=== PATIENT | female | born 1945 | race Caucasian/White ===

== ENCOUNTER 2021-04-06 07:49 | Observation (INO) ==
--- NOTE | 2021-03-03 09:43 | PAT Medication Instructions ---
Medication Instructions Date of Service March 03, 2021 Home Medications Immune Defense Vitamin 2 cap PO QAM meloxicam 15 mg PO QAM ropinirole 1 mg PO TID PRN ropinirole 4 mg PO HS ASK your surgeon for instructions meloxicam 15 mg PO QAM STOP taking 2 weeks before surgery (or as soon as possible if surgery is within 2 weeks) Immune Defense Vitamin 2 cap PO QAM DO NOT take the morning of surgery ropinirole 1 mg PO TID PRN Take evening before surgery ropinirole 1 mg PO TID PRN (if needed) ropinirole 4 mg PO HS Other Notes If you have any questions please call us at [phone] or [phone] or [phone] or [phone]
--- NOTE | 2021-03-06 14:50 | Anesthesiology Consultation ---
Date of Service March 06, 2021 Assessment & Plan (1) Encounter for pre-operative examination: COVID screening: Per assessment on 03/06: Travel screen negative, no known COVID- 19 positive contacts or current COVID-19 related symptoms. Patient states that she does occasional go to small, local shops without a mask but does practice social distancing. Education provided regarding need for compliance of mask wearing in public from now until surgery. Surgeon arranging preop COVID testing. Awaiting results. Chart Review Chart Review: Acceptable Risk for Surgery and Patient seen in Pre Admission Testing Teaching & Discussion Pre-Anesthesia Teaching/Discussion Notes: Instructed NPO after midnight before surgery,except medications with 15 cc of water. Medication instructions pro vided according to the PAT guidelines. History Surgery Operation Date: 04/06/21 07:00 Proposed Procedures p Right Total Knee Arthroplasty - Roman Norman MD Height/Weight Height: 5 ft 2 in Weight: 87.4 kg Allergies Allergy/AdvReac Type Severity Reaction Status Date / Time Sulfa (Sulfonamide Allergy Intermediate Hives Unverified 03/03/21 16:23 Antibiotics) naproxen AdvReac Mild Diarrhea Unverified 03/03/21 16:23 Medications Home Medications Medication Instructions Recorded Confirmed Last Taken Immune Defense Vitamin 2 cap PO QAM 03/02/21 03/02/21 Unknown meloxicam 15 mg PO QAM 03/02/21 03/02/21 Unknown ropinirole 1 mg PO TID PRN 03/02/21 03/02/21 Unknown ropinirole 4 mg PO HS 03/02/21 03/02/21 Unknown Past Medical History Medical History Degenerative disc disease Obesity Osteoarthritis Restless leg syndrome Exercise / Class Metabolic Activity II 4-5 Yardwork/Stairs/Walk up hill (one flight of stairs (no chest pain, no SOB)) Past Family History Family History Mother Family history of diabetes mellitus Sister Family history of diabetes mellitus Grandmother (Maternal) Family history of diabetes mellitus Other No family history of adverse response to anesthesia Past Surgical History Surgical History H/O ovarian cystectomy History of colonoscopy History of lumbar surgery no hardware History of open reduction and internal fixation (ORIF) procedure Right ankle (hardware subsequently removed) History of repair of rotator cuff Right History of tooth extraction History of total left knee replacement Past Anesthesia History No Hx of Anesthesia Complications and No Family Hx of Anesthesia Complications History of PONV No Hx of PONV and No Hx of Motion Sickness Social History Smoking Status: Never smoker Do You Dip or Chew Tobacco: No Hx Alcohol Use: No substance use type: does not use Review of Systems Patient denies chest pain, shortness of breath, dyspnea on exertion, fever, chills, cough, wheezing, palpitations. Physical Exam Vital Signs VITALS BP 143/82 P 83 TEMP 98.0 SP02 98%RA RESP 18 PHYSICAL Full cervical extension range of motion. Full TMJ range of motion. TMD 3.5 finger breaths Mallampati Score 1 Dentition: + crowns (some have fallen off), missing sides Lungs: clear throughout to auscultation Cardiac: regular rate and rhythm, no murmurs noted Spine: normal Carotid arteries: negative bruit Extremities: no edema Testing Laboratory Results 03/06/21 15:03/06/21: PT 9.7 Seconds (9.0-12.0) 03/06/21: INR 1.0 (0.9-1.1) 03/06/21: APTT 28.8 Seconds (21.0-31.0) 03/06/21 15: Hemoglobin A1c 6.1 % (4.5-5.6) H 03/06/21: Urine Color Yellow 03/06/21: Urine Appearance Clear (Clear) 03/06/21: Urine pH 5.0 (4.5-7.5) 03/06/21 15: Ur Specific [place] 1.032 (1.000-1.030) H 03/06/21 15: Urine Protein Negative (Negative) 03/06/21: Urine Glucose (UA) Negative (Negative) 03/06/21: Urine Ketones Trace (Negative) H 03/06/21 15: Urine Nitrite Negative (Negative) 03/06/21 15: Ur Leukocyte Esterase Negative (Negative) 03/06/21: Blood Type O Negative 03/06/21: Antibody Screen NEGATIVE 03/06/21 15:29 Electrocardiogram Date: 03/06/21 Findings: + NSR @ (79) Chest X-Ray Date: 03/06/21 FINDINGS: Lung volumes are normal. There is no pneumothorax or pleural effusion. No evidence for pulmonary edema or pneumonia. There is mild cardiomegaly. Spine fusion hardware is partially imaged on lateral projection. IMPRESSION: No acute cardiopulmonary findings.
[2021-03-06 16:02] LABS: Basophils # (auto) 0.02 K/uL (0-0.2); Basophils % (auto) 0.5 %; Eosinophils # (auto) 0.05 K/uL (0-0.5); Eosinophils % (auto) 1.2 %; Hematocrit (blood only) 36.2 % (37-47); Hemoglobin 12.1 g/dL (12.0-16.0); Immature Granulocytes # (auto) 0.01 K/uL (0.00-0.02); Immature Granulocytes % (auto) 0.2 %; Lymphocytes # (auto) 1.67 K/uL (1.2-3.4); Lymphocytes % (auto) 38.8 %; Mean Corpuscular Hemoglobin 29.7 pg (25-34); Mean Corpuscular Hgb Conc 33.4 g/dL (32-36); Mean Corpuscular Volume 88.7 fL (80-100); Mean Platelet Volume 9.8 fL (7.4-10.4); Monocytes # (auto) 0.28 K/uL (0.11-0.59); Monocytes % (auto) 6.5 %; Neutrophils # (auto) 2.27 K/uL (1.4-6.5); Neutrophils % (auto) 52.8 %; Platelet Count 233 K/uL (130-400); RDW Coefficient of Variation 14.4 % (11.5-14.5); RDW Standard Deviation 47.3 fL (36.4-46.3); Red Blood Count 4.08 M/uL (4.2-5.4)
[2021-03-06 16:09] LABS: Albumin Level 3.7 gm/dl (3.4-5.0); BUN Creatinine Ratio 33.6 (10-20); Calcium 8.8 mg/dl (8.5-10.1); Creatinine Clr Calc Pharmacy 63.2 ml/min; Est GFR (African American) 84.9; Est GFR (Non-African American) 73.2
--- NOTE | 2021-03-06 16:11 | XRay Report ---
XR chest Pre-admission PA/Lat CLINICAL HISTORY: Preoperative evaluation. COMPARISON STUDY: Chest radiograph March 09, 2013. FINDINGS: Lung volumes are normal. There is no pneumothorax or pleural effusion. No evidence for pulm onary edema or pneumonia. There is mild cardiomegaly. Spine fusion hardware is partially imaged on la teral projection. IMPRESSION: No acute cardiopulmonary findings. ACT 112: Negative or not required by law. Electronically signed by: Taj Johnson M.D. 03/06/2021 4:09 PM
[2021-03-06 16:14] LABS: Partial Thromboplastin Ratio 1.1; Partial Thromboplastin Time 28.8 Seconds (21.0-31.0); Prothrombin Time 9.7 Seconds (9.0-12.0)
[2021-03-06 16:23] LABS: Appearance Urine Clear (Clear); Bilirubin Urine Negative (Negative); Blood Urine Negative (Negative); Color Urine Yellow; Glucose Urine UA Negative (Negative); Ketones Urine Trace (Negative); Leukocyte Esterase Urine Negative (Negative); Nitrite Urine Negative (Negative); Protein Urine Negative (Negative); Specific Gravity Urine 1.032 (1.000-1.030); Urobilinogen Urine Negative (Negative)
[2021-03-07 05:20] LABS: Estimated Average Glucose 128 mg/dl; Hemoglobin A1C 6.1 % (4.5-5.6)
--- NOTE | 2021-03-07 06:16 | Electrocardiogram Report ---
Test Reason : Blood Pressure : / mmHG Vent. Rate : 079 BPM Atrial Rate : 079 BPM P-R Int : 138 ms QRS Dur : 088 ms QT Int : 394 ms P-R-T Axes : 061 086 050 degrees QTc Int : 451 ms Normal sinus rhythm Normal ECG When compared with ECG of 05-MAR-2013 10:20, No significant change was found Confirmed by Alex Cardozo ([id number]) on 03/07/2021 6:16:11 AM Referred By: Roman Norman Confirmed By:Alex Cardozo
--- NOTE | 2021-04-04 20:11 | History & Physical Report ---
Date of Service April 04, 2021 Assessment & Plan (1) Primary osteoarthritis of right knee: Treatment options discussed with patient. She has failed conservative measures as above. She would like to proceed with surgical management. Risks, benefits and alternatives to surgery including but not limited to infection, DVT, pain, stiffness, need for revision surgery, damage to blood vessels, damage to nerves, PE, , were discussed with the patient and they wish to proceed. Plan for right total knee arthroplasty at [facility] on 04/06/[address] Norman. Will plan on HHPT post discharge. DVT prophylaxis will be ASA 81mg BID x 1 mo post op. All questions answered. F/u post operatively. History of Present Illness Chief Complaint: Right knee pain Primary Care Provider: Keyon Mena 76 year old female with no significant PMHx presents with longstanding right knee pain. Has previous left knee replacement and has done well. Pain interferi ng with her daily activities. She has failed conservative measures including cortisone injections, viscoelastic injections, NSAIDs. Tylenol, and bracing. She would like to proceed with knee replacement. Patient denies headaches, sweats, fevers, chills, double vision, blurred vision, cough, sore throat, dysphagia, chest pain, sob, wheezing, n/v/d/c, numbness, tingling, fatigue, urinary symptoms, mood disorders. ROS positive for right knee pain and stiffness. Allergies Allergy/AdvReac Type Severity Reaction Status Date / Time Sulfa (Sulfonamide Allergy Intermediate Hives Unverified 03/03/21 16:23 Antibiotics) naproxen AdvReac Mild Diarrhea Unverified 03/03/21 16:23 Home Medications Medication Instructions Recorded Confirmed Type Immune Defense Vitamin 2 cap PO QAM 03/02/21 03/02/21 History meloxicam 15 mg PO QAM 03/02/21 03/02/21 History ropinirole 1 mg PO TID PRN 03/02/21 03/02/21 History ropinirole 4 mg PO HS 03/02/21 03/02/21 History Past Med/Surg History Medical History Degenerative disc disease Obesity Osteoarthritis Restless leg syndrome Surgical History H/O ovarian cystectomy History of colonoscopy History of lumbar surgery no hardware History of open reduction and internal fixation (ORIF) procedure Right ankle (hardware subsequently removed) History of repair of rotator cuff Right History of tooth extraction History of total left knee replacement Family History Mother Family history of diabetes mellitus Sister Family history of diabetes mellitus Grandmother (Maternal) Family history of diabetes mellitus Other No family history of adverse response to anesthesia Social History Smoking Status: Never smoker Second Hand Exposure: Yes ( A CHILD); Do You Dip or Chew Tobacco: No; Hx Alcohol Use: No Preferred Language: Urdu Print Shop Helper Required: No Beliefs That Will Affect Care: None Current Living Situation: Spouse Feels Safe at Home: Yes Safety Concerns: Feels Safe At This Time Assistive Devices: Cane and Glasses Assistive Devices Comment: PARTIAL PLATE (DOES NOT WEAR) Review of Systems All systems reviewed & are unremarkable except as noted in HPI & below Physical Exam Constitutional: well developed and well nourished; no acute distress Eyes: PERRL, conjunctivae normal, anicteric sclerae ENMT: external ear and nose normal, oropharynx normal Neck: trachea midline, no thyromegaly Respiratory: normal respiratory effort, lungs clear to auscultation Cardiovascular: RRR, no murmur, no edema Musculoskeletal: Right Knee: Painful ROM with crepitation. ROM 5-110 degrees, crepitation noted. Stable to valgus and varus stress. Positive Doroteo's. Tenderness medial joint line, mild effusion. Skin: no rashes, warm and dry Neurologic: patellar DTR's 2+ bilat, sensation intact Psychiatric: A+Ox3, euthymic affect Results & Data ([facility]) Laboratory Results Lab Results 03/06/21 03/06/21 03/06/21 Range/Units 15:29 15:29 15:29 WBC 4.30 L (4.8-10.8) K/uL RBC 4.08 L (4.2-5.4) M/uL Hgb 12.1 (12.0-16.0) g/dL Hct 36.2 L (37-47) % MCV 88.7 (80-100) fL MCH 29.7 (25-34) pg MCHC 33.4 (32-36) g/dL RDW Std Deviation 47.3 H (36.4-46.3) fL RDW Coeff of [place] 14.4 (11.5-14.5) % Plt Count 233 (130-400) K/uL MPV 9.8 (7.4-10.4) fL Immature Gran % (Auto) 0.2 % Neut % (Auto) 52.8 % Lymph % (Auto) 38.8 % [place] % (Auto) 6.5 % Eos % (Auto) 1.2 % Baso % (Auto) 0.5 % Neut # (Auto) 2.27 (1.4-6.5) K/uL Lymph # (Auto) 1.67 (1.2-3.4) K/uL [place] # (Auto) 0.28 (0.11-0.59) K/uL Eos # (Auto) 0.05 (0-0.5) K/uL Baso # (Auto) 0.02 (0-0.2) K/uL Immature Gran # (Auto) 0.01 (0.00-0.02) K/uL PT 9.7 (9.0-12.0) Seconds INR 1.0 (0.9-1.1) APTT 28.8 (21.0-31.0) Seconds PTT Ratio 1.1 Sodium 142 (136-145) mmol/L Potassium 4.0 (3.5-5.1) mmol/L Chloride 110 H (98-107) mmol/L Carbon Dioxide 26 (21-32) mmol/L Anion Gap 6.0 (3-11) BUN 27 H (7-18) mg/dl Creatinine 0.79 (0.6-1.2) mg/dl Est Cr Clr Drug Dosing 63.2 ml/min Est GFR ( Amer) 84.9 Est GFR (Non-Af Amer) 73.2 BUN/Creatinine Ratio 33.6 H (10-20) Glucose 154 H (70-99) mg/dl Estimat Average Glucose mg/dl Hemoglobin A1c (4.5-5.6) % Calcium 8.8 (8.5-10.1) mg/dl Albumin 3.7 (3.4-5.0) gm/dl Urine Color Urine Appearance (Clear) Urine pH (4.5-7.5) Ur Specific [place] (1.000-1.030) Urine Protein (Negative) Urine Glucose (UA) (Negative) Urine Ketones (Negative) Urine Blood (Negative) Urine Nitrite (Negative) Urine Bilirubin (Negative) Urine Urobilinogen (Negative) Ur Leukocyte Esterase (Negative) Blood Type Antibody Screen 03/06/21 03/06/21 03/06/21 Range/Units 15:29 15:29 15:29 WBC (4.8-10.8) K/uL RBC (4.2-5.4) M/uL Hgb (12.0-16.0) g/dL Hct (37-47) % MCV (80-100) fL MCH (25-34) pg MCHC (32-36) g/dL RDW Std Deviation (36.4-46.3) fL RDW Coeff of Perry (11.5-14.5) % Plt Count (130-400) K/uL MPV (7.4-10.4) fL Immature Gran % (Auto) % Neut % (Auto) % Lymph % (Auto) % [place] % (Auto) % Eos % (Auto) % Baso % (Auto) % Neut # (Auto) (1.4-6.5) K/uL Lymph # (Auto) (1.2-3.4) K/uL [place] # (Auto) (0.11-0.59) K/uL Eos # (Auto) (0-0.5) K/uL Baso # (Auto) (0-0.2) K/uL Immature Gran # (Auto) (0.00-0.02) K/uL PT (9.0-12.0) Seconds INR (0.9-1.1) APTT (21.0-31.0) Seconds PTT Ratio Sodium (136-145) mmol/L Potassium (3.5-5.1) mmol/L Chloride (98-107) mmol/L Carbon Dioxide (21-32) mmol/L Anion Gap (3-11) BUN (7-18) mg/dl Creatinine (0.6-1.2) mg/dl Est Cr Clr Drug Dosing ml/min Est GFR ( Amer) Est GFR (Non-Af Amer) BUN/Creatinine Ratio (10-20) Glucose (70-99) mg/dl Estimat Average Glucose 128 mg/dl Hemoglobin A1c 6.1 H (4.5-5.6) % Calcium (8.5-10.1) mg/dl Albumin (3.4-5.0) gm/dl Urine Color Yellow Urine Appearance Clear (Clear) Urine pH 5.0 (4.5-7.5) Ur Specific [place] 1.032 H (1.000-1.030) Urine Protein Negative (Negative) Urine Glucose (UA) Negative (Negative) Urine Ketones Trace H (Negative) Urine Blood Negative (Negative) Urine Nitrite Negative (Negative) Urine Bilirubin Negative (Negative) Urine Urobilinogen Negative (Negative) Ur Leukocyte Esterase Negative (Negative) Blood Type O Negative Antibody Screen NEGATIVE Diagnostic Findings Right knee radiographs: Endstage arthritic change, bone on bone medial compartment with periarticular osteophyte formation and subchondral sclerosis.
[~2021-04-06 07:49] MED LIST: ACETAMINOPHEN 500 MG TAB PO SCH; BUPIVACAINE 0.5 % 5 MG/1 ML PF 10ML VIAL ONE; EPINEPHrine INJ 1 MG/ML AMP ONE; FAMOTIDINE 20 MG TAB PO SCH; GABAPENTIN 300 MG CAP PO SCH; LR 15ML/HR IV SCH; METOCLOPRAMIDE HCL 10 MG TABLET PO SCH; ROPIVACAINE 0.5% 5 MG/ML 30 ML VIAL ONE; ROPIVACAINE 0.5% HCL/PF 150 MG, BUPIVACAINE 0.75% MPF 20 ML, EPINEPHrine 30MG/30ML (OR ... INSTIL SCH; TRANEXAMIC ACID 1,000 MG **IV Intra-op IV SCH; TRANEXAMIC ACID 1,000 MG **IV Pre-op IV SCH; ceFAZolin 2000MG 2,000 MG/15 ML SYR IV SCH; dexAMETHasone 4 MG TAB PO SCH
--- NOTE | 2021-04-06 09:10 | History & Physical Bridge Note ---
Date of Service April 06, 2021 History & Physical Bridge Note I have examined the patient, reviewed the History & Physical and in the interval since the performance of the History & Physical I have noted the following changes of clinical significance: no changes noted
[2021-04-06] MEDS ORDERED: fentaNYL citrate 100 MCG/2 ML VIAL ONE (09:28)
[2021-04-06] MEDS ORDERED: MIDAZOLAM HCL 1 MG/ML 2ML VIAL ONE ×2 (09:29→10:23)
[2021-04-06] MEDS ORDERED: ORTHO JOINT ANESTHETIC ONE (10:00)
[2021-04-06] MEDS ORDERED: ATROPINE SULFATE 0.1 MG/ML 10ML SYR IV PRN (10:14)
[2021-04-06] MEDS ORDERED: ePHEDrine sulfate 50 MG/ML AMP IV PRN (10:14)
[2021-04-06] MEDS ORDERED: PROPOFOL IV EMULSION 10 MG/ML 20 ML VIAL IV ONE ×7 (10:25→12:08)
[2021-04-06] MEDS ORDERED: KETAMINE 50 MG/5 ML SYRINGE ONE (11:07)
--- NOTE | 2021-04-06 12:07 | Operative Report ---
Post Operative Report Pre & Post Diagnosis Operation Date: 04/06/21 09:50 Pre-Op Diagnosis: Unilateral Primary Osteoarthritis Right Knee Post-Op Diagnosis: Unilateral Primary Osteoarthritis Right Knee I identified the patient and participated in the time-out.: Yes Procedure Operation Date: 04/06/21 09:50 Actual Procedures p Right Total Knee Arthroplasty(Right) - Roman Norman MD Surgeon Roman Norman MD Casino Accountant Carl RAY Estimated Blood Loss 5 Findings Consistent with Post-Op Diagnosis Specimens Bone cuts Drains 2 Hemovac Anesthesia Type MAC Spinal Regional Complications none Disposition Accompanied Patient To Recovery: No Disposition: Recovery Room Indications 76-year-old female progressive osteoarthritis of right knee failed conservative management. Patient is [id number] medial compartment. She has varus knee with some tricompartmental osteoarthritic changes. She has a Squires [employer] Nephew left knee replacement. Description of Procedure The patient was taken to the operating room and anesthetized under spinal MAC regional. Patient was placed supine on the the operating table. A pneumatic tourniquet was placed about the right upper thigh. The knee exam demonstrated moderately obese leg more obesity in the upper thigh. Patient has no instability and a varus knee with good range of motion.. The involved leg was elevated exsanguinated with Esmarch bandage and the pneumatic tourniquet was raised to 350 millimeters mercury. A longitudinal incision was made across the anterior knee. Skin flaps were elevated. An incision was made into the medial retinaculum and extended up into the mid third of the quadriceps tendon and extended down to the tibial tubercle. Intra-articular findings demonstrated tricompartment osteoarthritis with [id number] medial compartment eburnated bone. Tricompartmental osteophytes.. The knee was exposed by excising cruciate ligaments and menisci. The infrapatellar fat pad was resected. The fat pad over the anterior femur at the upper aspect of the articular surface was resected for placement of the component in that area. A subperiosteal peel lateral release was performed around the patella The Squires [employer] Nephew journey 2.0 posterior stabilized total knee arthroplasty system was utilized for the procedure. The custom femoral cutting guide was pinned in position. The distal femoral cut was made. The size 3, 5 in 1 cutting block was placed. The anterior posterior and chamfer cuts were made. The knee was extended and a free hand cut technique was performed to the patella. The patella with was measured and the width was reproduced using a 32 symmetrical patella component. 3 drill holes are made for the patella component pegs. The tibia was then subluxed. The custom tibial cutting block was pinned in position and the proximal tibial cut was made with the oscillating saw. The size 3 tibial trial was externally rotated in line with the tibial tubercle and pinned in position. The punch for the stem was used. The femoral trial was inserted and centered the notch cutting devices were used and the collet was placed. Tibial trials were used for the insert. The size 12 trial gave balanced ligaments through full range of motion. Patella tracking was assessed with range of motion. The patella tracked santino tral. The trials were removed. The Orthomix anesthetic cocktail was injected per protocol. The cut bone surfaces and soft tissue were copiously irrigated with antibiotic solution with bacitracin. The final components were cemented with Simplex cement. The final components were Squires [employer] Nephew journey posterior stabilized right size 3 femoral component, right 3 tibial component, 12 posterior stabilized polyethylene insert for tibia and a 32 symmetrical patella. While the cement cured the Betadine soak was used per protocol. When the cement cured the knee was copiously irrigated with pulsatile lavage saline solution. 2 drains were brought out laterally connected to Hemovac. The quadriceps tendon and medial retinaculum were closed with interrupted [id number] #1 Vicryl sutures. The knee was taken through full range of motion and repair was secure. The subcutaneous tissues were closed with 2-0 Vicryl sutures. The skin was closed with keiko. A superficial wound VAC evangelina and Acticoat was applied. The tourniquet was let down and the patient had good capillary refill to the extremity. The patient tolerated the procedure well. My physician licensed nursing assistant Carl RAY assisted in the procedure including prepping draping leg positioning soft tissue retraction instrument management and assisted in the closure ,dressings application and will participate in postoperative care the patient. I attest to the content of the Intraoperative Record and any orders documented therein. Any exceptions are noted below.
--- NOTE | 2021-04-06 13:13 | Anesthesiology Progress Note ---
Date of Service April 06, 2021 Anesthesia Post Procedure Vital Signs Vital Signs: Temp Pulse Pulse Resp BP BP Pulse Ox 04/06/21 13:10 99 H 16 105/91 99 04/06/21 13:00 86 16 145/98 H 100 04/06/21 12:50 36.1 C L 92 H 16 160/83 H 99 04/06/21 08:35 36.7 C 87 18 173/98 H 97 Pain Intensity Right Knee: Pain Intensity: 5 Transfer of Care Handoff Completed per policy Notes Mental Status: alert / awake / arousable Patient Amnestic to Procedure: Yes Nausea / Vomiting: adequately controlled Pain: adequately controlled Airway Patency, RR, SpO2: stable & adequate BP & HR: stable & adequate Hydration State: stable & adequate Anesthetic Complications: no major complications apparent
--- NOTE | 2021-04-06 13:16 | XRay Report ---
TWO VIEWS RIGHT KNEE CLINICAL HISTORY: Postoperative examination. FINDINGS: AP and crosstable lateral portable views of the right knee are obtained. A right knee arthr oplasty is in near anatomic alignment. There has been undersurface remodeling of the patella. No acut e fracture is seen. There are expected postoperative changes around the knee including skin clips, a surgical drain, soft tissue edema, and subcutaneous gas. IMPRESSION: Expected postoperative changes status post right knee arthroplasty. No acute fracture is seen. ACT 112: Negative or not required by law. Electronically signed by: Steven James M.D. 04/06/2021 1:15 PM
--- NOTE | 2021-04-06 13:27 | Communication Note ---
Date of Service: April 06, 2021 Pt's SAB is receding ; sensorium and movement is starting to return.
[2021-04-06] MEDS ORDERED: rOPINIRole HCL 1 MG TABLET PO SCH ×2 (14:00→21:00)
[2021-04-06] MEDS ORDERED: METOCLOPRAMIDE HCL INJ 5 MG/ML 2 ML VIAL IV PRN (14:31)
[2021-04-06] MEDS ORDERED: bisacodyL 10 MG SUPP PR PRN (14:31)
[2021-04-06] MEDS ORDERED: MAGNESIUM HYDROXIDE SUSP 30 ML UDC PO PRN (14:31)
[2021-04-06] MEDS ORDERED: HYDROmorphone INJ 0.5 MG/0.5 ML SYR IV PRN (14:31)
[2021-04-06] MEDS ORDERED: ONDANSETRON INJ 2 MG/ML 2 ML VIAL IV PRN (14:31)
[2021-04-06] MEDS ORDERED: NALOXONE HCL 0.4 MG/1 ML VIAL/CARP IV PRN (14:31)
[2021-04-06] MEDS: SODIUM CHLORIDE 0.9% 1000ML 1,000 ML IV SCH (15:06)
[2021-04-06] MEDS: ACETAMINOPHEN 500 MG TAB PO SCH ×2 (15:41→21:14)
[2021-04-06] MEDS ORDERED: rOPINIRole HCL 1 MG TABLET PO PRN (16:08)
[2021-04-06] MEDS: ceFAZolin 2000MG 2,000 MG/15 ML SYR IV SCH (17:00)
[2021-04-06] MEDS ORDERED: SENNA 8.6 MG TAB PO SCH (21:00)
[2021-04-06] MEDS: DOCUSATE SODIUM 100 MG CAP PO SCH (21:09)
[2021-04-06] MEDS: ASPIRIN 81 MG ECTAB PO SCH (21:09)
[2021-04-06] MEDS: rOPINIRole HCL 1 MG TABLET PO PRN (21:10)
[2021-04-07] MEDS: ceFAZolin 2000MG 2,000 MG/15 ML SYR IV SCH (01:41)
[2021-04-07] MEDS: SODIUM CHLORIDE 0.9% 1000ML 1,000 ML IV SCH (01:41)
[2021-04-07] MEDS: ACETAMINOPHEN 500 MG TAB PO SCH (05:04)
[2021-04-07 06:17] LABS: Hematocrit (blood only) 31.4 % (37-47); Hemoglobin 10.1 g/dL (12.0-16.0); Mean Corpuscular Hemoglobin 29.2 pg (25-34); Mean Corpuscular Hgb Conc 32.2 g/dL (32-36); Mean Corpuscular Volume 90.8 fL (80-100); Mean Platelet Volume 9.9 fL (7.4-10.4); Platelet Count 206 K/uL (130-400); RDW Coefficient of Variation 14.1 % (11.5-14.5); RDW Standard Deviation 46.5 fL (36.4-46.3); Red Blood Count 3.46 M/uL (4.2-5.4); White Blood Count 8.53 K/uL (4.8-10.8)
[2021-04-07 06:35] LABS: BUN Creatinine Ratio 31.1 (10-20); Calcium 9.3 mg/dl (8.5-10.1); Creatinine Clr Calc Pharmacy 68.4 ml/min; Est GFR (African American) 94.9 ml/min; Est GFR (Non-African American) 81.9 ml/min; Potassium 3.9 mmol/L (3.5-5.1)
--- NOTE | 2021-04-07 07:28 | Orthopedic Progress Note ---
Date of Service April 07, 2021 Assessment & Plan (1) Primary osteoarthritis of right knee: POD#1 Right TKA -PT/OT -Pain management -DVT prophylaxis-SCDs, TEDs, ASA 81mg BID -AM labs-hemoglobin drop to 10.1 from 12.1 preop -D/C planning-home with HHPT, plan on discharge today if PT goes well. Admission and Anticipated Discharge Date Admission Date: April 06, 2021 Subjective Patient doing well this morning. No complaints. Knee pain is well controlled. Denies chest pain, sob, dizziness, headache, n/v/d. Hoping to go home today. Review of Systems Review of Systems: All systems reviewed & are unremarkable except as noted in HPI & below Physical Exam Physical Exam: Dressing is c/d/i. No calf tenderness. Toes mobile. Good dorsiflexion. Distally n/v status and sensation intact. Constitutional: well developed and well nourished; no acute distress Results & Data ([facility]) Vital Signs (Past 12 Hours) Vital Signs Temp Pulse Resp BP Pulse Ox 04/07/21 07:19 37.2 C 63 17 137/72 98 04/07/21 03:55 36.8 C 82 16 124/65 97 04/06/21 22:20 37.0 C 73 16 130/65 94
[2021-04-07] MEDS: DOCUSATE SODIUM 100 MG CAP PO SCH (07:48)
[2021-04-07] MEDS: ASPIRIN 81 MG ECTAB PO SCH (07:48)
[2021-04-07] MEDS: oxyCODONE HCL IR 5 MG TAB (IMMEDIATE RELEASE) PO PRN ×2 (07:48→11:40)
--- NOTE | 2021-04-07 08:58 | Hospitalist Consultation ---
Date of Consultation April 07, 2021 Assessment & Plan (1) Primary osteoarthritis of right knee: Mrs. Umanzor is a 76-year-old female with a history of Obesity, Restless Leg Syndrome, Degenerative Disc Disease, and Osteoarthritis who is now POD#1 from a Right TKA. Patient is being seen in room 311 and is sitting in a bedside chair. Patient has been up and walking around in her room, and she also washed up and dressed herself today. Patient states that her knee pain is very well controlled. She has not had any difficulty with ambulation. Patient considers herself to be very healthy overall and with the exception of the above-mentioned conditions, she does not have any serious chronic medical conditions. She is doing very well postoperatively and offers no complaints. Her knee surgical pain is well controlled, and she is ambulating without difficulty. She has developed a postoperative anemia with a hemoglobin of 10.1 g/dl today, but she is asymptomatic with this. Patient is medically stable at this time. Her vital signs are stable, and she is feeling well. We discussed the fact that she has developed a postoperative anemia. She was reassured that in coming weeks her blood count will build back up. Recommend the followin. Monitor daily H&H, BMP. 2. Ongoing DVT prophylaxis as per orthopedic surgeon. 3. Physical therapy as ordered. 4. Gradually increase ambulation as tolerated. 5. Continue pain management regimen as her postoperative pain is well control led. (2) Postoperative anemia: -- Hgb is 10.1 g/dl today. -- Patient is asymptomatic with this. -- Monitor daily H&H. (3) Restless leg syndrome: -- Well controlled. -- Continue Ropinirole 1 mg t.i.d. and 4 mg qHS. (4) Obesity: -- Hopefully with knee being replaced, patient will be able to be more physically active. -- Patient was encouraged to gradually increase aerobic activities as tolerated. History of Present Illness Reason for Consultation: -- Post-op Medical Management. -- POD#1 Right TKA. Requesting Physician: Roman Norman MD Attending Physician: Joshua Mcnamara DO History of Present Illness Mrs. Umanzor is a 76-year-old female with a history of Obesity, Restless Leg Syndrome, Degenerative Disc Disease, and Osteoarthritis who is now POD#1 from a Right TKA. Patient is being seen in room 311 and is sitting in a bedside ch air. Patient has been up and walking around in her room, and she also washed up and dressed herself today. Patient states that her knee pain is very well controlled. She has not had any difficulty with ambulation. Patient considers herself to be very healthy overall and with the exception of the above-mentioned conditions, she does not have any serious chronic medical conditions. Patient is as active as her knee allows. Leading up to surgery, she was able to do her activities daily living, carry laundry, carry groceries, walk, etc without limiting cardiopulmonary symptoms. She specifically denies any exertional chest pain, heaviness, tightness, pressure, or discomfort. She denies any exertional neck, jaw, back, or arm pain. She denies any shortness of breath, unusual dyspnea on exertion, orthopnea, or PND. No history of palpitations, syncope, or near syncope. Her body weight and appetite have been stable. She denies any nausea, vomiting, melena, or hematochezia. She has developed a postoperative anemia with a hemoglobin of 10.1 g/dl today, but she is asymptomatic with this. She will have physical therapy later this morning. Allergies Allergy/AdvReac Type Severity Reaction Status Date / Time Sulfa (Sulfonamide Allergy Intermediate Hives Verified 04/06/21 08:32 Antibiotics) naproxen AdvReac Mild Diarrhea Verified 04/06/21 08:32 Home Medications Medication Instructions Recorded Confirmed Type Immune Defense Vitamin 2 cap PO QAM 03/02/21 04/06/21 History meloxicam 15 mg PO QAM 03/02/21 04/06/21 History ropinirole 1 mg PO TID PRN 03/02/21 04/06/21 History ropinirole 4 mg PO HS 03/02/21 04/06/21 History acetaminophen 1,000 mg PO Q8 #60 tab 04/07/21 Rx aspirin 81 mg PO BID #60 tab 04/07/21 Rx oxycodone 5 - 10 mg PO .Q4h-6h PRN #30 tab 04/07/21 Rx MDD 6 Patient History Medical History Degenerative disc disease Obesity Osteoarthritis Restless leg syndrome Surgical History H/O ovarian cystectomy History of colonoscopy History of lumbar surgery no hardware History of open reduction and internal fixation (ORIF) procedure Right ankle (hardware subsequently removed) History of repair of rotator cuff Right History of tooth extraction History of total left knee replacement Family History Mother Family history of diabetes mellitus Sister Family history of diabetes mellitus Grandmother (Maternal) Family history of diabetes mellitus Other No family history of adverse response to anesthesia Social History Smoking Status: Never smoker Second Hand Exposure: Yes ( A CHILD); Do You Dip or Chew Tobacco: No; Hx Alcohol Use: No Preferred Language: Lithuanian 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 HEENT: Head is atraumatic, normocephalic. EOM's intact. Facies symmetric. No perioral cyanosis. NECK: No JVD. JVP is not elevated. Carotid upstrokes are + 2 bilaterally. No bruits are noted. CHEST/LUNGS: Clear to auscultation throughout all lung jules. No wheezes, rales, or crackles. CVS: S1 and S2 are regular without obvious murmurs, gallops, or rubs. PMI is nonpalpable. No lifts, heaves, or thrills. No abdominal aortic or renal bruits. ABDOMINAL EXAM: Bowel sounds are present. No masses, organomegaly, or tenderness. EXTREMITIES: No clubbing or cyanosis. No edema. Intact posterior tibial and radial pulses bilaterally. Right knee is dressed. NEUROLOGIC EXAM: Patient is awake, alert, and oriented. Pleasant and cooperative. Answers questions appropriately. Speech is clear. Results & Data Results & Data ([facility]) Vital Signs (Past 12 Hours) Vital Signs Temp Pulse Resp BP Pulse Ox 04/07/21 07:19 37.2 C 63 17 137/72 98 04/07/21 03:55 36.8 C 82 16 124/65 97 04/06/21 22:20 37.0 C 73 16 130/65 94 Laboratory Results Laboratory Results - last 24 hr 04/07/21 04/07/21 05:40 05:40 WBC 8.53 RBC 3.46 L Hgb 10.1 L Hct 31.4 L MCV 90.8 MCH 29.2 MCHC 32.2 RDW Std Deviation 46.5 H RDW Coeff of [place] 14.1 Plt Count 206 MPV 9.9 Sodium 140 Potassium 3.9 Chloride 110 H Carbon Dioxide 26 Anion Gap 4.0 BUN 22 H Creatinine 0.72 Est Cr Clr Drug Dosing 68.4 Est GFR ( Amer) 94.9 Est GFR (Non-Af Amer) 81.9 BUN/Creatinine Ratio 31.1 H Glucose 100 H Calcium 9.3 Diagnostic Findings KNEE X-RAY 04/06/21: -- Expected postoperative changes status post right knee arthroplasty. -- No acute fracture is seen. Medications Administered Medications Immune Defense Vitamin 2 cap PO QAM 03/02/21 [History Confirmed 04/06/21] meloxicam 15 mg PO QAM 03/02/21 [History Confirmed 04/06/21] ropinirole 1 mg PO TID PRN 03/02/21 [History Confirmed 04/06/21] ropinirole 4 mg PO HS 03/02/21 [History Confirmed 04/06/21] acetaminophen 1,000 mg PO Q8 #60 tab 04/07/21 [Rx] aspirin 81 mg PO BID #60 tab 04/07/21 [Rx] oxycodone 5 - 10 mg PO .Q4h-6h PRN #30 tab MDD 6 04/07/21 [Rx] Home Medications Acetaminophen (Acetaminophen 500 Mg Tab) 1,000 mg PO Q8 [facility] Stop: 05/06/21 14:30 Last Admin: 04/07/21 05:04 Dose: 1,000 mg Documented by: Aspirin (Aspirin 81 Mg Ectab) 81 mg PO BID [facility] Stop: 05/06/21 20:59 Last Admin: 04/07/21 07:48 Dose: 81 mg Documented by: Bisacodyl (Bisacodyl 10 Mg Supp) 10 mg NC DAILY PRN PRN Reason: Constipation Stop: 05/06/21 14:30 Docusate Sodium (Docusate Sodium 100 Mg Cap) 100 mg PO BID [facility] Stop: 05/06/21 20:59 Last Admin: 04/07/21 07:48 Dose: 100 mg Documented by: Hydromorphone HCl (Hydromorphone Inj 0.5 Mg/0.5 Ml Syr) 0.5 mg IV Q4H PRN PRN Reason: Pain or Pre PT Stop: 04/20/21 14:30 Magnesium Hydroxide (Magnesium Hydroxide Susp 30 Ml Udc) 30 ml PO Q6H PRN PRN Reason: Constipation Stop: 05/06/21 14:30 Metoclopramide HCl (Metoclopramide Hcl Inj 5 Mg/Ml 2 Ml Vial) 10 mg IV Q6H PRN PRN Reason: Nausea And Vomiting Stop: 05/06/21 14:30 Multivitamins (Multivitamin Tab) 1 tab PO QAM [facility] Stop: 05/07/21 08:59 Last Admin: 04/07/21 07:48 Dose: 1 tab Documented by: Naloxone HCl (Naloxone Hcl 0.4 Mg/1 Ml Vial/Carp) 0.1 mg IV Q5M PRN PRN Reason: Oversedation/Resp Depression Stop: 05/06/21 14:30 Ondansetron HCl (Ondansetron Inj 2 Mg/Ml 2 Ml Vial) 4 mg IV Q6H PRN PRN Reason: Nausea And Vomiting Stop: 05/06/21 14:30 Oxycodone HCl (Oxycodone Hcl Ir 5 Mg Tab (Immediate Release)) 5 - 10 mg PO Q4H PRN PRN Reason: Pain or Pre PT Stop: 04/20/21 14:30 Last Admin: 04/07/21 07:48 Dose: 5 mg Documented by: Ropinirole HCl (Ropinirole Hcl 1 Mg Tablet) 1 mg PO TID PRN PRN Reason: RESTLESS LEG SYNDROME Stop: 05/06/21 14:30 Last Admin: 04/06/21 21:10 Dose: 1 mg Documented by: Ropinirole HCl (Ropinirole Hcl 1 Mg Tablet) 4 mg PO [facility] Stop: 05/06/21 20:59 Last Admin: 04/06/21 21:09 Dose: 4 mg Documented by: Sennosides (Senna 8.6 Mg Tab) 17.2 mg PO [facility] Stop: 05/06/21 20:59 Last Admin: 04/06/21 21:09 Dose: 17.2 mg Documented by: PG Care Time/CCT Total # of Minutes Spent Total Time Spent with Patient: Total time spent is greater than 50% in coordination of care (as documented) at patient's floor/unit and/or counseling patient:35 Coding Level of Care Code 59340 Inpt Consult Level 4 Diagnoses Primary osteoarthritis of right knee M17.11 Postoperative anemia D64.9 Restless leg syndrome G25.81 Obesity E66.9 Time Spent (min) 45
[2021-04-07] MEDS ORDERED: rOPINIRole HCL 1 MG TABLET PO SCH (09:00)
[2021-04-07] MEDS ORDERED: MULTIVITAMIN TAB PO SCH (09:00)
[2021-04-07] MEDS: rOPINIRole HCL 1 MG TABLET PO PRN (12:07)
--- NOTE | 2021-04-08 18:11 | Discharge Summary ---
Date of Service April 08, 2021 Admission HPI Per Admitting Provider 76 year old female with no significant PMHx presents with longstanding right knee pain. Has previous left knee replacement and has done well. Pain interfering with her daily activities. She has failed conservative measures including cortisone injections, viscoelastic injections, NSAIDs. Tylenol, and bracing. She would like to proceed with knee replacement. Patient denies headaches, sweats, fevers, chills, double vision, blurred vision, cough, sore throat, dysphagia, chest pain, sob, wheezing, n/v/d/c, numbness, tingling, fatigue, urinary symptoms, mood disorders. ROS positive for right knee pain and stiffness. Admission Exam Per Admitting Provider Constitutional: well developed and well nourished; no acute distress Eyes: PERRL, conjunctivae normal, anicteric sclerae ENMT: external ear and nose normal, oropharynx normal Neck: trachea midline, no thyromegaly Respiratory: normal respiratory effort, lungs clear to auscultation Cardiovascular: RRR, no murmur, no edema Musculoskeletal: Right Knee: Painful ROM with crepitation. ROM 5-110 degrees, crepitation noted. Stable to valgus and varus stress. Positive Doroteo's. Tenderness medial joint line, mild effusion. Skin: no rashes, warm and dry Neurologic: patellar DTR's 2+ bilat, sensation intact Psychiatric: A+Ox3, euthymic affect Principal Diagnosis Right knee osteoarthritis, restless leg syndrome Discharge Exam Constitutional well developed and well nourished; no acute distress Eyes PERRL, conjunctivae normal, anicteric sclerae ENMT external ear and nose normal, oropharynx normal Neck trachea midline, no thyromegaly Respiratory normal respiratory effort, lungs clear to auscultation Cardiovascular RRR, no murmur, no edema Skin no rashes, warm and dry Neurologic patellar DTR's 2+ bilat, sensation intact Psychiatric A+Ox3, euthymic affect Discharge Data Allergies Allergy/AdvReac Type Severity Reaction Status Date / Time Sulfa (Sulfonamide Allergy Intermediate Hives Verified 04/06/21 08:32 Antibiotics) naproxen AdvReac Mild Diarrhea Verified 04/06/21 08:32 Consultations 04/03/21 10:29 Consult Hospitalist Routine Procedures Performed Operation Date: 04/06/21 09:50 Actual Procedures p Right Total Knee Arthroplasty(Right) - Roman Norman MD Ordered Studies 04/06/21 05:00 US - OR guided needle placemen Routine Hospital Course (1) Primary osteoarthritis of right knee: Patient presented for same day admission following right total knee arthroplasty on 04/06/21. She tolerated procedure well. The Patient had an uneventful hospital course. Post-operatively, her activity was progressed and well tolerated. They participated in PT with ambulation distance of 400 feet. ROM of operative knee reached 90 degrees. Labs remained stable- lowest hemoglobin recorded: 10.[address] Joshua Mcnamara of medical service was consulted for medical management during admission. Pain controlled on oral medications. Please refer to daily progress notes and PT notes for complete details. After exam on 04/07/21, patient was felt to be stable for discharge home with home health PT. Patient will f/u in the office in about 2 weeks for further evaluation including x-rays and incision check, sooner if having any issues or concerns. POD#1 Right TKA -PT/OT -Pain management -DVT prophylaxis-SCDs, TEDs, ASA 81mg BID -AM labs-hemoglobin drop to 10.1 from 12.1 preop -D/C planning-home with HHPT, plan on discharge today if PT goes well. Lab Results 03/06/21 03/06/21 03/06/21 Range/Units 15:29 15:29 15:29 WBC 4.30 L (4.8-10.8) K/uL RBC 4.08 L (4.2-5.4) M/uL Hgb 12.1 (12.0-16.0) g/dL Hct 36.2 L (37-47) % MCV 88.7 (80-100) fL MCH 29.7 (25-34) pg MCHC 33.4 (32-36) g/dL RDW Std Deviation 47.3 H (36.4-46.3) fL RDW Coeff of [place] 14.4 (11.5-14.5) % Plt Count 233 (130-400) K/uL MPV 9.8 (7.4-10.4) fL Immature Gran % (Auto) 0.2 % Neut % (Auto) 52.8 % Lymph % (Auto) 38.8 % [place] % (Auto) 6.5 % Eos % (Auto) 1.2 % Baso % (Auto) 0.5 % Neut # (Auto) 2.27 (1.4-6.5) K/uL Lymph # (Auto) 1.67 (1.2-3.4) K/uL [place] # (Auto) 0.28 (0.11-0.59) K/uL Eos # (Auto) 0.05 (0-0.5) K/uL Baso # (Auto) 0.02 (0-0.2) K/uL Immature Gran # (Auto) 0.01 (0.00-0.02) K/uL PT 9.7 (9.0-12.0) Seconds INR 1.0 (0.9-1.1) APTT 28.8 (21.0-31.0) Seconds PTT Ratio 1.1 Sodium 142 (136-145) mmol/L Potassium 4.0 (3.5-5.1) mmol/L Chloride 110 H (98-107) mmol/L Carbon Dioxide 26 (21-32) mmol/L Anion Gap 6.0 (3-11) BUN 27 H (7-18) mg/dl Creatinine 0.79 (0.6-1.2) mg/dl Est Cr Clr Drug Dosing 63.2 ml/min Est GFR ( Amer) 84.9 Est GFR (Non-Af Amer) 73.2 BUN/Creatinine Ratio 33.6 H (10-20) Glucose 154 H (70-99) mg/dl Estimat Average Glucose mg/dl Hemoglobin A1c (4.5-5.6) % Calcium 8.8 (8.5-10.1) mg/dl Albumin 3.7 (3.4-5.0) gm/dl Urine Color Urine Appearance (Clear) Urine pH (4.5-7.5) Ur Specific [place] (1.000-1.030) Urine Protein (Negative) Urine Glucose (UA) (Negative) Urine Ketones (Negative) Urine Blood (Negative) Urine Nitrite (Negative) Urine Bilirubin (Negative) Urine Urobilinogen (Negative) Ur Leukocyte Esterase (Negative) COVID-19 Eval Order SARS-CoV-2, RNA, NAAT (NEGATIVE) Blood Type Antibody Screen 03/06/21 03/06/21 03/06/21 Range/Units 15:29 15:29 15:29 WBC (4.8-10.8) K/uL RBC (4.2-5.4) M/uL Hgb (12.0-16.0) g/dL Hct (37-47) % MCV (80-100) fL MCH (25-34) pg MCHC (32-36) g/dL RDW Std Deviation (36.4-46.3) fL RDW Coeff of Perry (11.5-14.5) % Plt Count (130-400) K/uL MPV (7.4-10.4) fL Immature Gran % (Auto) % Neut % (Auto) % Lymph % (Auto) % [place] % (Auto) % Eos % (Auto) % Baso % (Auto) % Neut # (Auto) (1.4-6.5) K/uL Lymph # (Auto) (1.2-3.4) K/uL [place] # (Auto) (0.11-0.59) K/uL Eos # (Auto) (0-0.5) K/uL Baso # (Auto) (0-0.2) K/uL Immature Gran # (Auto) (0.00-0.02) K/uL PT (9.0-12.0) Seconds INR (0.9-1.1) APTT (21.0-31.0) Seconds PTT Ratio Sodium (136-145) mmol/L Potassium (3.5-5.1) mmol/L Chloride (98-107) mmol/L Carbon Dioxide (21-32) mmol/L Anion Gap (3-11) BUN (7-18) mg/dl Creatinine (0.6-1.2) mg/dl Est Cr Clr Drug Dosing ml/min Est GFR ( Amer) Est GFR (Non-Af Amer) BUN/Creatinine Ratio (10-20) Glucose (70-99) mg/dl Estimat Average Glucose 128 mg/dl Hemoglobin A1c 6.1 H (4.5-5.6) % Calcium (8.5-10.1) mg/dl Albumin (3.4-5.0) gm/dl Urine Color Yellow Urine Appearance Clear (Clear) Urine pH 5.0 (4.5-7.5) Ur Specific [place] 1.032 H (1.000-1.030) Urine Protein Negative (Negative) Urine Glucose (UA) Negative (Negative) Urine Ketones Trace H (Negative) Urine Blood Negative (Negative) Urine Nitrite Negative (Negative) Urine Bilirubin Negative (Negative) Urine Urobilinogen Negative (Negative) Ur Leukocyte Esterase Negative (Negative) COVID-19 Eval Order SARS-CoV-2, RNA, NAAT (NEGATIVE) Blood Type O Negative Antibody Screen NEGATIVE 04/06/21 04/06/21 04/07/21 Range/Units Unknown Unknown 05:40 WBC 8.53 (4.8-10.8) K/uL RBC 3.46 L (4.2-5.4) M/uL Hgb 10.1 L (12.0-16.0) g/dL Hct 31.4 L (37-47) % MCV 90.8 (80-100) fL MCH 29.2 (25-34) pg MCHC 32.2 (32-36) g/dL RDW Std Deviation 46.5 H (36.4-46.3) fL RDW Coeff of Perry 14.1 (11.5-14.5) % Plt Count 206 (130-400) K/uL MPV 9.9 (7.4-10.4) fL Immature Gran % (Auto) % Neut % (Auto) % Lymph % (Auto) % [place] % (Auto) % Eos % (Auto) % Baso % (Auto) % Neut # (Auto) (1.4-6.5) K/uL Lymph # (Auto) (1.2-3.4) K/uL [place] # (Auto) (0.11-0.59) K/uL Eos # (Auto) (0-0.5) K/uL Baso # (Auto) (0-0.2) K/uL Immature Gran # (Auto) (0.00-0.02) K/uL PT (9.0-12.0) Seconds INR (0.9-1.1) APTT (21.0-31.0) Seconds PTT Ratio Sodium (136-145) mmol/L Potassium (3.5-5.1) mmol/L Chloride (98-107) mmol/L Carbon Dioxide (21-32) mmol/L Anion Gap (3-11) BUN (7-18) mg/dl Creatinine (0.6-1.2) mg/dl Est Cr Clr Drug Dosing ml/min Est GFR ( Amer) Est GFR (Non-Af Amer) BUN/Creatinine Ratio (10-20) Glucose (70-99) mg/dl Estimat Average Glucose mg/dl Hemoglobin A1c (4.5-5.6) % Calcium (8.5-10.1) mg/dl Albumin (3.4-5.0) gm/dl Urine Color Urine Appearance (Clear) Urine pH (4.5-7.5) Ur Specific [place] (1.000-1.030) Urine Protein (Negative) Urine Glucose (UA) (Negative) Urine Ketones (Negative) Urine Blood (Negative) Urine Nitrite (Negative) Urine Bilirubin (Negative) Urine Urobilinogen (Negative) Ur Leukocyte Esterase (Negative) COVID-19 Eval Order Covid19 [facility] SARS-CoV-2, RNA, NAAT NEGATIVE (NEGATIVE) Blood Type Antibody Screen 04/07/21 Range/Units 05:40 WBC (4.8-10.8) K/uL RBC (4.2-5.4) M/uL Hgb (12.0-16.0) g/dL Hct (37-47) % MCV (80-100) fL MCH (25-34) pg MCHC (32-36) g/dL RDW Std Deviation (36.4-46.3) fL RDW Coeff of Perry (11.5-14.5) % Plt Count (130-400) K/uL MPV (7.4-10.4) fL Immature Gran % (Auto) % Neut % (Auto) % Lymph % (Auto) % [place] % (Auto) % Eos % (Auto) % Baso % (Auto) % Neut # (Auto) (1.4-6.5) K/uL Lymph # (Auto) (1.2-3.4) K/uL [place] # (Auto) (0.11-0.59) K/uL Eos # (Auto) (0-0.5) K/uL Baso # (Auto) (0-0.2) K/uL Immature Gran # (Auto) (0.00-0.02) K/uL PT (9.0-12.0) Seconds INR (0.9-1.1) APTT (21.0-31.0) Seconds PTT Ratio Sodium 140 (136-145) mmol/L Potassium 3.9 (3.5-5.1) mmol/L Chloride 110 H (98-107) mmol/L Carbon Dioxide 26 (21-32) mmol/L Anion Gap 4.0 (3-11) BUN 22 H (7-18) mg/dl Creatinine 0.72 (0.6-1.2) mg/dl Est Cr Clr Drug Dosing 68.4 ml/min Est GFR ( Amer) 94.9 Est GFR (Non-Af Amer) 81.9 BUN/Creatinine Ratio 31.1 H (10-20) Glucose 100 H (70-99) mg/dl Estimat Average Glucose mg/dl Hemoglobin A1c (4.5-5.6) % Calcium 9.3 (8.5-10.1) mg/dl Albumin (3.4-5.0) gm/dl Urine Color Urine Appearance (Clear) Urine pH (4.5-7.5) Ur Specific [place] (1.000-1.030) Urine Protein (Negative) Urine Glucose (UA) (Negative) Urine Ketones (Negative) Urine Blood (Negative) Urine Nitrite (Negative) Urine Bilirubin (Negative) Urine Urobilinogen (Negative) Ur Leukocyte Esterase (Negative) COVID-19 Eval Order SARS-CoV-2, RNA, NAAT (NEGATIVE) Blood Type Antibody Screen Total Time Total Time Spent Total Time Spent (In Minutes): 20 Discharge Plan Discharge Items Patient Disposition: Home - Home Health Services Reason For Visit: Unilateral Primary Osteoarthritis Right Knee Discharge Diagnosis: Right knee osteoarthritis. Activity: Per Instructions section Non-emergency contact: Surgeon Call non-emergency contact if: you have any medication questions, your pain is not controlled, your pain is worsening, your pain is concerning for you, you have a fever, your temperature is above 101, your wound has increased redness, your wound has increased drainage and your wound pain has increased Follow-up/Referrals: Keyon Mena M.D. [Primary Care Provider] - Diet: Regular Addtl Attending Provider Instructions: ACTIVITY RECOMMENDATIONS: SELF CARE INSTRUCTIONS AFTER TOTAL KNEE REPLACEMENT A. You may need to continue a physical therapy program after discharge from the hospital. There are several options available to you. Your doctor will assist you in selecting the best one for you. 1. An out-patient facility 2 to 3 times a week for therapy or home therapy. 2. Continue working on all exercises taught to you in the hospital. Your goals should be to increase bending of your knee to 90 degrees and beyond and to fully straighten your knee. B. You may progress at your own pace from walking with a walker or crutches to a cane; then to no assistive devices. C. Make walking a part of your daily routine. Be up as much as comfortable with rest periods throughout the day. Rest with leg elevation is very important. Use the ice wrap frequently for the first 3-4 weeks. D. There are no restrictions on activities. You may ride in a car, shop, participate in project design engineer and all social activities. E. Wear the long elastic stockings (CHAPO hose) 20 hours a day for 2 weeks after surgery. They can be removed several times a day for laundering and for a bath. F. You may shower, no tub baths until cleared by your doctor. SPECIAL CARE INSTRUCTIONS: VERY IMPORTANT TO READ AND REVIEW A. There are a few signs you need to watch for after you are home. Call [facility] [place] if you notice any of the followin. Increased severe knee pain. Some pain is expected especially when you exercise. 2. Increased swelling in your leg or knee; pain or swelling of the calf muscle in either lower leg. 3. Any fluid drainage from the incision. 4. Shortness of breath or chest pain. B. Please call [facility] at if you have any concerns or questions about your operation or recovery. The doctor or his nurse will return your call promptly. C. You must take antibiotics before dental work, bladder, bowel or other surgery. Your doctor will provide you with a permanent care to carry describing this precaution. IMPORTANT: * REMEMBER TO TAKE ASPIRIN, 81 MG, TWICE DAILY FOR 4 WEEKS UNLESS OTHERWISE DIRECTED. THIS IS YOUR BLOOD THINNER. * HIGH RISK PATIENTS MAY BE PRESCRIBED A STRONGER BLOOD THINNER. THIS WILL BE PROVIDED AT DISCHARGE. * CALL IF INCREASED PAIN, REDNESS, DRAINAGE OR FEVER GREATER THAT 101. * WEAR CHAPO HOSE 20 HOURS PER DAY FOR 2 WEEKS. This is a large suction dressing covering your incision. This will help pull any excess drainage from the wound and allow your incision to heal properly. You may shower with this if you can keep the unit outside of the shower. If any bleeding or leakage is noted please call your doctor's office. This will remain on your incision for 7 days and then should be removed. This can be done yourself or by the home nursing staff if applicable. The entire unit is disposable once removed. Once removed, keep incision clean and dry. If redness or drainage is noted, please call your surgeon. IF INCISION IS LEAKING THROUGH DRESSING, CALL THE OFFICE . FOLLOW UP VISIT: If appointment is not already scheduled: Please call [facility] [place] to make a follow-up appointment for 2 weeks after your surgery at . Stand-Alone Forms: My [facility] [employer], Smoking Cessation Medications and DC Order Prescriptions: New acetaminophen 500 mg Tablet 1,000 mg PO Q8 Qty: 60 RF: 0 aspirin 81 mg Tablet,Delayed Release (Dr/Ec) 81 mg PO BID Qty: 60 RF: 0 oxycodone 5 mg Tablet 5 - 10 mg PO .Q4h-6h MDD 6 PRN (Reason: pain) Qty: 30 RF: 0 Continued ropinirole 1 mg Tablet 1 mg PO TID PRN (Reason: RESTLESS LEG SYNDROME) RF: 0 meloxicam 15 mg Tablet 15 mg PO QAM RF: 0 ropinirole 2 mg Tablet 4 mg PO HS RF: 0 Immune Defense Vitamin 2 cap PO QAM RF: 0 Discharge Orders: Discharge Order (Routine); Ordered 04/07/21 Ordered By: Miguel Caro/Other Patient Handouts: 5 Steps for Eating Healthier, A1C Admission Data Admit Date/Time: 04/06/21 12:54 Attending Provider: Roman Norman Admit Provider: Romna Norman Primary Care Provider: Keyon Mena Other Providers: Joshua Mcnamara Other Interventions: Discharge Summary Assessment (RN) Last Done: 04/07/21 09:34
== END 2021-04-07 12:27 | disposition home health service (06) ==
LOC: 3E 07:49 → ASU 07:49